=== PATIENT | male | born 1935 | race Caucasian/White ===

== ENCOUNTER 2018-08-13 14:34 | Observation (INO) | payer MEDICARE, BC ==
[~2018-08-13] VITALS: Ht 172.7 cm; Wt 97.4 kg
[2018-08-13 15:04] LABS: BASOPHILS # (AUTO) 0.03 x10^3/uL (0-0.1); BASOPHILS % (AUTO) 0 % (0-1); EOSINOPHILS # (AUTO) 0.14 x10^3/uL (0-0.4); EOSINOPHILS % (AUTO) 2 % (1-7); LYMPHOCYTES # (AUTO) 0.65 x10^3/uL (1-3.4); LYMPHOCYTES % (AUTO) 9 % (22-44); MD NO; MEAN CORPUSCULAR HEMOGLOBIN 28.9 pg (27.5-34.5); MEAN CORPUSCULAR HGB CONC 32.8 g/dL (33.2-36.2); MEAN CORPUSCULAR VOLUME 87.9 fL (81-97); MEAN PLATELET VOLUME 10.1 fL (7.4-10.4); MONOCYTES # (AUTO) 0.61 x10^3/uL (0.2-0.8); MONOCYTES % (AUTO) 9 % (2-9); NEUTROPHILS # (AUTO) 5.64 x10^3/uL (1.8-6.8); NEUTROPHILS % (AUTO) 80 % (42-75); PLATELET COUNT 127 x10^3/uL (130-400); RED BLOOD COUNT 4.36 x10^6/uL (4.38-5.82); RED CELL DISTRIBUTION WIDTH 16.7 % (9.4-14.8)
[2018-08-13 15:11] LABS: ALBUMIN 3.4 g/dL (3.4-5.0); ANION GAP 7 mmol/L (5-15); CALCIUM 8.6 mg/dL (8.5-10.1); CHLORIDE 104 mmol/L (98-107)
[2018-08-13 15:16] LABS: ALANINE AMINOTRANSFERASE 27 U/L (12-78); ALKALINE PHOSPHATASE 170 U/L (45-117); BILIRUBIN,TOTAL 2.3 mg/dL (0.2-1.0); CREATININE 1.08 mg/dL (0.7-1.3); TOTAL PROTEIN 7.8 g/dL (6.4-8.2); TROPONIN I 0.027 ng/mL (0.000-0.045)
[2018-08-13 15:26] LABS: INTERNATIONAL NORMALIZED RATIO 2.74 (0.93-1.1); PROTHROMBIN TIME 27.9 Seconds (9.6-11.5)
[2018-08-13] MEDS ORDERED: WARF1TAB74 PO (16:34)
[2018-08-13] MEDS ORDERED: DIGO125T PO (16:34)
[2018-08-13] MEDS ORDERED: ALLO300T PO (16:34)
[2018-08-13] MEDS ORDERED: CHOL400C PO (16:34)
[2018-08-13] MEDS ORDERED: FURO-93 PO (16:34)
[2018-08-13] MEDS ORDERED: IRON1TAB60 PO (16:34)
[2018-08-13] MEDS ORDERED: WARF3TAB52 PO (16:34)
[2018-08-13] MEDS ORDERED: POTA99TA24 PO (16:34)
[2018-08-13] MEDS ORDERED: CARV3.1212 PO (16:34)
[2018-08-13] MEDS ORDERED: ATOR10TA PO (16:34)
[2018-08-13] MEDS ORDERED: VITAMIN D PO (16:57)
[2018-08-13] MEDS ORDERED: CARVEDILOL PO (16:57)
[2018-08-13] MEDS ORDERED: LASIX PO (16:57)
[2018-08-13] MEDS ORDERED: POTASSIUM PO (16:57)
[2018-08-13] MEDS ORDERED: ALLOPURINOL PO (16:57)
[2018-08-13] MEDS ORDERED: DIGOXIN PO (16:57)
[2018-08-13] MEDS ORDERED: IRON PO (16:57)
[2018-08-13] MEDS ORDERED: FUROSEMIDE 20 MG/2 ML IV ONE (17:00)
[2018-08-13] MEDS ORDERED: PLEASE ENTER ALLERGIES MC SCH (17:00)
[2018-08-13] MEDS ORDERED: FUROSEMIDE 20 MG/2 ML ONE (17:20)
[2018-08-13] MEDS ORDERED: ACETAMINOPHEN 325 MG TABLET PO PRN (17:30)
[2018-08-13] MEDS: WARFARIN 3 MG TABLET PO-COUM SCH ×2 (17:30→18:00)
[2018-08-13] MEDS ORDERED: WARFARIN 3 MG TABLET PO-COUM SCH (17:30)
[2018-08-13] MEDS ORDERED: ONDANSETRON 2MG/ML, 2ML IVPush PRN (17:30)
[2018-08-13 18:00] LABS: TROPONIN I 0.042 ng/mL (0.000-0.045)
[2018-08-13 19:09] VITALS: BP 139/72
[2018-08-13 19:36] VITALS: BP 139/72
[2018-08-13] MEDS: ISOSORBIDE DINITRATE 10 MG TABLET PO SCH (19:58)
[2018-08-13] MEDS ORDERED: ATORVASTATIN 10 MG TABLET PO SCH (21:00)
[2018-08-13 21:09] VITALS: BP 131/65
[2018-08-13 21:14] VITALS: BP 130/70
[2018-08-13 21:19] VITALS: BP 126/56
[2018-08-13 23:11] LABS: TROPONIN I 0.048 ng/mL (0.000-0.045)
[2018-08-14 01:15] VITALS: BP 127/61
[2018-08-14] MEDS ORDERED: SODIUM CHLORIDE 0.9%, 250ML IVBOLUS ONE (03:00)
[2018-08-14 07:09] VITALS: BP 122/66
[2018-08-14] MEDS: ISOSORBIDE DINITRATE 10 MG TABLET PO SCH (09:27)
[2018-08-14] MEDS ORDERED: CARVEDILOL PO (09:56)
[2018-08-14] MEDS ORDERED: ISOS10TA2 PO (09:56)
[2018-08-14] MEDS ORDERED: HYDR-3341 PO (09:56)
== END 2018-08-14 13:20 | disposition home or self-care (01) ==
LOC: ED 15:57 → INTOOBSV 17:26 → EDIP 17:26 → 4EST 18:15 → DCLOUNGE 08-14 13:10
PROVIDERS: ADMIT Hospitalist; ATTEND Hospitalist
DX: R55 Syncope and collapse (principal); R00.1 Bradycardia, unspecified; R60.0 Localized edema; I50.9 Heart failure, unspecified; N18.9 Chronic kidney disease, unspecified; R79.89 Other specified abnormal findings of blood chemistry; D69.6 Thrombocytopenia, unspecified; Z87.891 Personal history of nicotine dependence
CPT/HCPCS: 36415; 71045; 80053; 80162; 83880; 84484; 85025; 85610; 85730; 93005; 96374; 99284; G0378; J1940; J7050; 99285